=== PATIENT | male | born 1945 | race Caucasian/White ===

== ENCOUNTER → 2023-12-17 | Outpatient (CLI) | payer MEDICARE ==
[~2023-12-17] MED LIST: ADVAIR; ALB5IS; BUDE0.5S; IBUP-1454
[2023-12-17 07:49] LABS: Cholesterol 136 mg/dL (< 200); Triglycerides 86 mg/dL (< 150)
[2023-12-17 07:50] LABS: LDL Cholesterol 67 mg/dL (< 100)
[2023-12-17 07:51] LABS: HDL Cholesterol 55 mg/dL (40-59)
== END | disposition home or self-care (01) ==
LOC: LAB 06:47
PROVIDERS: ATTEND Internal Medicine Cardiovascular Disease
DX: I50.42 Chronic combined systolic (congestive) and diastolic (congestive) heart failure (principal)
CPT/HCPCS: 36415; 80061